=== PATIENT | male | born 1975 | race African-American/Black ===

== ENCOUNTER 2022-10-09 22:13 | Emergency (ER) | payer SELFPAY ==
[2022-10-09] MEDS ORDERED: NALOXONE HCL 0.4 MG/ML VIAL ONE (22:23)
[2022-10-09 22:31] VITALS: BP 52/00; PULSE 102; RESP 60; BMI 38.4
[2022-10-09] MEDS ORDERED: ALBUTEROL SO4 2.5/IPRATROPIUM 0.5 INH SOL 3 ML VIAL.NEB. NEB ONE (22:32)
[2022-10-10 03:48] LABS: HIV INTERPRETATION NEGATIVE (NEGATIVE)
== END 2022-10-10 02:00 | disposition expired ==
LOC: JER 22:13
PROC: 5A02216 Assistance with Cardiac Output using Other Pump, Continuous (ICD-10-PCS; principal; 2022-10-09)
DX: I46.9 Cardiac arrest, cause unspecified (principal)
CPT/HCPCS: 36415; 71045-TC-FY; 80307; 82550; 82553; 84484; 87389; 87522; 99284-25; 99285-25